=== PATIENT | male | born 1975 | race Asian ===

== ENCOUNTER 2017-04-11 21:51 | Emergency (ER) | payer OTHER ==
[~2017-04-11] VITALS: Ht 162.6 cm; Wt 73.9 kg
[2017-04-11 22:02] VITALS: Ht 162.6 cm; Wt 73.9 kg
[2017-04-12 00:24] LABS: microscopic required? NO
[2017-04-12 00:52] LABS: UA SPECIFIC GRAVITY 1.025 (1.005-1.035); urine erythrocyte NEGATIVE (NEGATIVE)
[2017-04-12 03:00] VITALS: BP 113/76
== END 2017-04-12 03:00 | disposition home or self-care (01) ==
LOC: ED 21:51
PROVIDERS: Emergency Medicine
DX: S29.012A Strain of muscle and tendon of back wall of thorax, initial encounter (principal); V43.92XA Unspecified car occupant injured in collision with other type car in traffic accident, initial encounter; Y93.89 Activity, other specified; Y92.89 Other specified places as the place of occurrence of the external cause; Y99.8 Other external cause status
CPT/HCPCS: J1885